=== PATIENT | female | born 1970 | race Caucasian/White ===

== ENCOUNTER → 2016-03-06 | Outpatient (CLI) | payer MEDICAID ==
[2016-03-06 08:59] LABS: Anisocytosis Slight; Basophils % (A) 1 %; CH 23.7; CHCM 29.7; Eosinophils # (A) 0.1 k/uL (0-0.7); Eosinophils % (A) 2 %; HCT 28.4 % (34.0-46.0); HGB 8.2 gm/dL (11.4-16.0); Hypochromasia Marked; Luc # (Auto) 0.12; Luc % (Auto) 2; Lymphocytes # (A) 1.3 k/uL (1.0-4.8); Lymphocytes % (A) 21 %; MCHC 28.8 g/dL (31.0-37.0); MCV 79.9 fL (80.0-100.0); Mean Platelet Volume 7.3; Monocytes # (A) 0.4 k/uL (0-1.0); Monocytes % (A) 7 %; Neutrophils # (A) 4.2 k/uL (1.3-7.7); Neutrophils % (A) 68 %; Poikilocytosis Moderate; RBC 3.56 m/uL (3.80-5.40); RDW 16.2 % (11.5-15.5); WBC 6.2 k/uL (3.8-10.6); WBC (Perox) 6.84
== END | disposition home or self-care (01) ==
LOC: LABPAT 08:30
PROVIDERS: ATTEND Obstetrics & Gynecology
DX: Z01.812 Encounter for preprocedural laboratory examination (principal); D64.9 Anemia, unspecified; N93.8 Other specified abnormal uterine and vaginal bleeding
CPT/HCPCS: 36415; 85025

== ENCOUNTER 2016-03-10 06:40 | Day surgery (SDC) | payer MEDICAID ==
[2016-03-06 12:05] VITALS: BMI 35.4
[~2016-03-10 06:40] MED LIST: FAMOTIDINE 20 MG/2 ML VIAL IV PRN; HYDROmorphone 1 MG/ML 1 ML SYRINGE IVP PRN; LACTATED RINGERS 1,000 ML IV SCH; LIDOCAINE 1% 20 ML VIAL (10MG/ML) FOR IV START INTRADERMA PRN; MIDAZOLAM 2 MG/2 ML VIAL IV PRN; ONDANSETRON 4 MG/2 ML VIAL IVP PRN; Pre Op ABX Message 1 EACH MISC MISCELLANE ONE
[2016-03-10] MEDS ORDERED: LIDOCAINE 1% 20 ML VIAL (10MG/ML) FOR IV START INTRADERMA ONE (07:10)
[2016-03-10] MEDS ORDERED: DEXAMETHASONE SOD PHOSPHATE 10 MG/ML 1 ML VIAL IV ONE (07:16)
[2016-03-10] MEDS ORDERED: LIDOCAINE 1%-EPI 1:100,000 20 ML VIAL SUBMUCOSAL ONE ×2 (07:23→08:00)
[2016-03-10] MEDS ORDERED: fentaNYL (PF) 50 MCG/ML 2 ML AMP ONE (07:33)
[2016-03-10] MEDS ORDERED: PROPOFOL 10 MG/ML 20 ML VIAL IV ONE (07:33)
[2016-03-10] MEDS ORDERED: MIDAZOLAM 2 MG/2 ML VIAL ONE (07:33)
[2016-03-10] MEDS ORDERED: LIDOCAINE 1% INJ 10MG/ML (20 ML MDV) ONE (07:33)
[2016-03-10] MEDS ORDERED: LIDOCAINE 1%-EPI 1:100,000 20 ML VIAL ONE (07:33)
--- NOTE | 2016-03-10 08:14 | P.OP ---
Date of Procedure: 03/10/16 Preoperative Diagnosis: Menometrorrhagia Anemia Postoperative Diagnosis: Same Anesthesia: CHIQUISA Surgeon: Grace Beth Estimated Blood Loss (ml): 5 IV fluids (ml): 400 Urine output (ml): 10 Pathology: none sent Condition: stable Disposition: PACU Operative Findings: Uterus with large amount of clot and debris. Bilateral tubal ostia not visualized. Description of Procedure: After the patient was met in the preoperative holding area and all questions were answered, she was taken to the operating room where anesthetic was administered without incident. She was in positioned, prepped and draped in the dorsal lithotomy position. Exam under anesthetic was undertaken. Bladder was drained for approximately 10 mL of clear urine. Single-sided speculum was placed in the vagina and the cervix was grasped anteriorly with a single-tooth tenaculum. Paracervical block with lidocaine plus epinephrine was placed. The uterus was sounded to 10 cm. Of note the cervix is approximately 1 cm dilated with dark clot emanating from the cervix. The diagnostic hysteroscope was introduced without need for cervical dilation. With introduction of the hysteroscope visualization was difficult secondary to a large amount of clot. This was eventually flushed with the hysteroscopic fluid and very fluffy endometrium was appreciated. There did not appear to be any gross intracavitary lesions noted. The hysteroscope was then removed and the NovaSure ablation device was inserted. The cavity length was 5.5 cm and the width was 4.6 cm. Cavity assessment test was passed. The device was enabled for a treatment cycle of 75 seconds. Following cessation of the treatment cycle the device was removed. The hysteroscope was reintroduced. There appeared to be an area at the fundal region of the uterus that was not blanched however the remainder of the uterine cavity appeared to be adequately desiccated. The hysteroscope was removed and the cervix was observed. No active bleeding was noted. All instruments were then removed from the vagina and the patient was awoken from anesthetic without incident. She was transported to the recovery area in stable condition. All counts reported to me as correct by the operating room staff.
[2016-03-10 08:19] VITALS: TEMP 97
[2016-03-10] MEDS ORDERED: KETOROLAC 30 MG/ML 1 ML VIAL IVP ONE (08:22)
[2016-03-10 08:30] VITALS: RESP 16
[2016-03-10 09:31] VITALS: BP 112/66; PULSE 65
== END 2016-03-10 10:07 | disposition home or self-care (01) ==
LOC: OR 06:40
PROVIDERS: ATTEND Obstetrics & Gynecology
DX: N93.8 Other specified abnormal uterine and vaginal bleeding (principal); N92.1 Excessive and frequent menstruation with irregular cycle; D64.9 Anemia, unspecified; Z79.899 Other long term (current) drug therapy
CPT/HCPCS: 58563; 84703; J2250; J1100; J2405; J2001; J3010; J1885; J2704

== ENCOUNTER → 2017-10-29 | Outpatient (CLI) | payer MEDICAID ==
[2017-10-29 11:09] LABS: Basophils % (A) 1 %; Eosinophils # (A) 0.2 k/uL (0-0.7); Eosinophils % (A) 3 %; HCT 39.6 % (34.0-46.0); HGB 12.2 gm/dL (11.4-16.0); Hypochromasia Slight; Lymphocytes # (A) 1.5 k/uL (1.0-4.8); Lymphocytes % (A) 25 %; MCHC 30.8 g/dL (31.0-37.0); MCV 84.6 fL (80.0-100.0); Mean Platelet Volume 6.5; Monocytes # (A) 0.4 k/uL (0-1.0); Monocytes % (A) 6 %; Neutrophils # (A) 3.9 k/uL (1.3-7.7); Neutrophils % (A) 65 %; Platelet Count 238 k/uL (150-450); RBC 4.69 m/uL (3.80-5.40); RDW 15.6 % (11.5-15.5)
[2017-10-29 11:19] LABS: ALT 33 U/L (9-52); AST 23 U/L (14-36); Albumin 4.2 g/dL (3.5-5.0); Alkaline Phosphatase 70 U/L (38-126); Anion Gap 9 mmol/L; Blood Urea Nitrogen 15 mg/dL (7-17); Calcium 9.4 mg/dL (8.4-10.2); Carbon Dioxide 27 mmol/L (22-30); Chloride 105 mmol/L (98-107); Cholesterol 173 mg/dL (<200); Glucose 96 mg/dL (74-99); HDL Cholesterol 53 mg/dL (40-60); LDL Cholesterol,Calculated 104 mg/dL (0-99); Potassium 4.7 mmol/L (3.5-5.1); Sodium 141 mmol/L (137-145); Total Bilirubin 0.4 mg/dL (0.2-1.3); Total Protein 7.6 g/dL (6.3-8.2); Triglycerides 82 mg/dL (<150)
[2017-10-29 11:35] LABS: T4, Free (Free Thyroxine) 0.88 ng/dL (0.78-2.19)
[2017-10-29 14:03] LABS: Erythrocyte Sedimentation Rate 19 mm/hr (0-20)
[2017-10-29 19:27] LABS: Iron Saturation 10.09 (12.00-45.00)
== END | disposition home or self-care (01) ==
LOC: LABWHC1 10:37
PROVIDERS: ATTEND Family Medicine
DX: Z00.00 Encounter for general adult medical examination without abnormal findings (principal); D64.9 Anemia, unspecified; M25.50 Pain in unspecified joint; R53.83 Other fatigue
CPT/HCPCS: 36415; 80053; 80061; 82728; 83540; 83550; 84439; 84443; 85025; 85652

== ENCOUNTER → 2018-11-22 | Outpatient (CLI) | payer MEDICAID ==
[2018-11-22 08:40] LABS: Anisocytosis Slight; HCT 41.6 % (34.0-46.0); HGB 13.7 gm/dL (11.4-16.0); MCHC 32.8 g/dL (31.0-37.0); MCV 85.2 fL (80.0-100.0); Mean Platelet Volume 6.9; Platelet Count 240 k/uL (150-450); RBC 4.88 m/uL (3.80-5.40); RDW 16.2 % (11.5-15.5); WBC 6.4 k/uL (3.8-10.6)
[2018-11-22 16:56] LABS: Hemoglobin A1C 5.7 % (4.0-6.0)
[2018-11-22 16:59] LABS: Albumin 4.2 g/dL (3.80-4.90); Albumin/Globulin Ratio 1.91 (1.60-3.17); Anion Gap 9.5 mmol/L (4.00-12.00); Carbon Dioxide 24.5 mmol/L (21.6-31.8); Chol/HDL Ratio 2.93; Globulin 2.2 g/dL (1.6-3.3); Potassium 4.6 mmol/L (3.5-5.5); Total Bilirubin 0.3 mg/dL (0.2-1.2); Total Protein 6.4 g/dL (6.2-8.2)
[2018-11-22 17:03] LABS: Iron Saturation 17.3 (12.00-45.00)
[2018-11-22 17:56] LABS: Ferritin 15.5 ng/mL (10.0-291.0)
== END | disposition home or self-care (01) ==
LOC: LABWHC1 08:02
PROVIDERS: ATTEND Physician Assistant
DX: R73.01 Impaired fasting glucose (principal); R53.83 Other fatigue; D64.9 Anemia, unspecified; E78.5 Hyperlipidemia, unspecified; E66.9 Obesity, unspecified
CPT/HCPCS: 36415; 80053; 80061; 82728; 83036; 83540; 83550; 84439; 84443; 84481; 85027

== ENCOUNTER → 2019-12-29 | Outpatient (CLI) | payer MEDICAID ==
[2019-12-29 09:38] LABS: HCT 43.5 % (34.0-46.0); HGB 14.2 gm/dL (11.4-16.0); MCH 29.8 pg (25.0-35.0); MCHC 32.7 g/dL (31.0-37.0); MCV 91.3 fL (80.0-100.0); Mean Platelet Volume 7.5; Platelet Count 194 k/uL (150-450); RBC 4.76 m/uL (3.80-5.40); RDW 13.1 % (11.5-15.5); WBC 5.3 k/uL (3.8-10.6)
[2019-12-29 17:36] LABS: Hemoglobin A1C 5.5 % (4.0-6.0)
[2019-12-29 18:02] LABS: Albumin 4.4 g/dL (3.80-4.90); Albumin/Globulin Ratio 1.91 (1.60-3.17); Anion Gap 9.7 mmol/L (4.00-12.00); BUN/Creat Ratio 17.78 Ratio (12.00-20.00); Calcium 9.4 mg/dL (8.7-10.3); Carbon Dioxide 24.3 mmol/L (21.6-31.8); Chol/HDL Ratio 2.83; Globulin 2.3 g/dL (1.6-3.3); LDL Cholesterol,Calculated 90.4 mg/dL (0.0-131.0); Non-African American GFR(CKD) 75.1 (60.0-200.0); Potassium 4.7 mmol/L (3.5-5.5); Total Bilirubin 0.4 mg/dL (0.3-1.2); Total Protein 6.7 g/dL (6.2-8.2); VLDL Calculation 15.6 mg/dL (5.00-40.00)
== END | disposition home or self-care (01) ==
LOC: LABWHC1 08:35
PROVIDERS: ATTEND Physician Assistant
DX: E66.9 Obesity, unspecified (principal); E78.5 Hyperlipidemia, unspecified
CPT/HCPCS: 36415; 80053; 80061; 83036; 85027

== ENCOUNTER → 2020-07-13 | Outpatient (CLI) | payer MEDICAID ==
[2020-07-13 11:35] LABS: Basophils # (A) 0.02 X 10*3/uL (0.00-0.10); Basophils % (A) 0.4 %; Eosinophils # (A) 0.13 X 10*3/uL (0.04-0.35); Eosinophils % (A) 2.5 %; HCT 42.6 % (37.2-46.3); HGB 13.5 g/dL (12.0-15.0); Lymphocytes # (A) 1.58 X 10*3/uL (0.90-5.00); Lymphocytes % (A) 29.9 %; MCH 29.4 pg (27.0-32.0); MCHC 31.7 g/dL (32.0-37.0); MCV 92.8 fL (80.0-97.0); Mean Platelet Volume 10.2 fL (9.5-12.2); Monocytes % (A) 7.6 %; Neutrophils # (A) 3.14 X 10*3/uL (1.80-7.70); Neutrophils % (A) 59.2 %; Platelet Count 204 X 10*3/uL (140-440); RBC 4.59 X 10*6/uL (4.10-5.20); RDW 13.7 % (11.5-14.5); WBC 5.29 X 10*3/uL (4.50-10.00)
[2020-07-13 12:36] LABS: African American GFR (CKD) 100.3 (60.0-200.0); Albumin 4.1 g/dL (3.80-4.90); Albumin/Globulin Ratio 2.28 (1.60-3.17); Anion Gap 9.5 mmol/L (4.00-12.00); BUN/Creat Ratio 18.75 Ratio (12.00-20.00); Carbon Dioxide 24.5 mmol/L (21.6-31.8); Chol/HDL Ratio 2.34; Globulin 1.8 g/dL (1.6-3.3); Non-African American GFR(CKD) 86.6 (60.0-200.0); Potassium 4.1 mmol/L (3.5-5.5); Total Bilirubin 0.7 mg/dL (0.2-1.2); Total Protein 5.9 g/dL (6.2-8.2)
[2020-07-13 15:10] LABS: Hemoglobin A1C 5.2 % (4.0-6.0)
== END | disposition home or self-care (01) ==
LOC: LABWHC1 07:59
PROVIDERS: ATTEND Family Medicine
DX: Z00.00 Encounter for general adult medical examination without abnormal findings (principal); E66.9 Obesity, unspecified; R73.02 Impaired glucose tolerance (oral)
CPT/HCPCS: 36415; 80053; 80061; 83036; 84443; 85025

== ENCOUNTER → 2024-05-27 | Outpatient (CLI) | payer MEDICAID ==
[2024-05-27 15:29] LABS: ALT 16 U/L (8-44); AST 15 U/L (13-35); Chol/HDL Ratio 2.58 Ratio; LDL Cholesterol,Calculated 99.6 mg/dL (0.0-131.0); VLDL Calculation 16.68 mg/dL (5.00-40.00)
[2024-05-28 05:07] LABS: B/A1 Ratio 0.36 Ratio (0.30 - 0.90)
== END | disposition home or self-care (01) ==
LOC: LABWHC1 08:49
PROVIDERS: ATTEND Nurse Practitioner Acute Care
DX: E78.2 Mixed hyperlipidemia (principal)
CPT/HCPCS: 36415; 80061; 82172; 83695; 84450; 84460